=== PATIENT | male | born 1940 | race Caucasian/White ===

== ENCOUNTER 2016-07-21 05:47 | Emergency (ER) | payer MEDICARE, BC ==
[2016-07-21] MEDS ORDERED: PRINIVIL10 M1 PO (06:06)
[2016-07-21] MEDS ORDERED: CARTIA XT180 MG PO (06:06)
[2016-07-21] MEDS ORDERED: LOPRESSOR 225 MG/TAB PO (06:07)
[2016-07-21] MEDS ORDERED: ZOCOR20 M1 PO (06:07)
[2016-07-21] MEDS ORDERED: GOOD NEIGHBOR P20 M1 PO (06:08)
[2016-07-21] MEDS ORDERED: POTASSIUM CHLO10 ME8 PO (06:08)
[2016-07-21] MEDS ORDERED: FLOMAX 0.40.4 MG/CAP PO (06:08)
== END 2016-07-21 09:33 | disposition expired ==
LOC: ED 05:47
DX: I46.9 Cardiac arrest, cause unspecified (principal); I48.91 Unspecified atrial fibrillation; E11.9 Type 2 diabetes mellitus without complications; I10 Essential (primary) hypertension; E78.5 Hyperlipidemia, unspecified; Z85.038 Personal history of other malignant neoplasm of large intestine
CPT/HCPCS: J0171